=== PATIENT | male | born 1950 | race Caucasian/White ===

== ENCOUNTER 2017-06-07 05:51 | Inpatient (IN) | payer OTHER, MEDICARE ==
[~2017-06-07] VITALS: Ht 170.2 cm; Wt 91.0 kg
[~2017-06-07 05:51] MED LIST: ATOR10TA PO
[2017-06-07] MEDS ORDERED: LACTATED RINGERS 1,000 ML IV SCH (06:11)
[2017-06-07] MEDS ORDERED: TRANEXAMIC ACID 100 MG/ML, 10ML ONE ×4 (06:23)
[2017-06-07] MEDS ORDERED: KETOROLAC 60 MG/2 ML ONE (06:23)
[2017-06-07] MEDS ORDERED: EPINEPHRINE 1 MG/ML, 1ML ONE (06:24)
[2017-06-07] MEDS ORDERED: ROPIvacaine/PF 0.2%, 20 ML ONE (06:24)
[2017-06-07] MEDS ORDERED: SODIUM CHLORIDE 0.9% 50 ML ONE (06:24)
[2017-06-07] MEDS ORDERED: FENTANYL PF 100 MCG/2ML ONE (06:25)
[2017-06-07] MEDS ORDERED: MIDAZOLAM 1 MG/ML, 2ML ONE (06:25)
[2017-06-07] MEDS ORDERED: OxyconTIN ER 10 MG TAB.ER PO STA (06:25)
[2017-06-07] MEDS ORDERED: CEFAZOLIN 1,000 MG ONE (06:26)
[2017-06-07] MEDS ORDERED: PROPOFOL 0 ML ONE (06:26)
[2017-06-07] MEDS ORDERED: PROPOFOL 10 MG/ML, 20ML ONE (06:26)
[2017-06-07] MEDS ORDERED: ONDANSETRON 2MG/ML, 2ML ONE (06:26)
[2017-06-07] MEDS ORDERED: DEXAMETHASONE 4 MG/ML, 1ML ONE (06:26)
[2017-06-07] MEDS ORDERED: LIDOCAINE-MPF 2% ,5ML ONE ×2 (06:28→08:11)
[2017-06-07] MEDS ORDERED: BUPIVACAINE/PF 0.25% ONE (06:29)
[2017-06-07] MEDS ORDERED: VANCOMYCIN PER PHARMACY MC STA (06:37)
[2017-06-07] MEDS ORDERED: GABAPENTIN 300 MG CAPSULE PO STA (06:40)
[2017-06-07] MEDS ORDERED: ACETAMINOPHEN 500 MG TABLET ONE (06:54)
[2017-06-07] MEDS ORDERED: ACETAMINOPHEN 500 MG TABLET PO STA (06:54)
[2017-06-07] MEDS ORDERED: VANCOMYCIN 1,600 MG in SODIUM CHLORIDE 0.9% 250 ML IV ONE (07:00)
[2017-06-07] MEDS ORDERED: ONDANSETRON 4 MG TABLET PO PRN (07:30)
[2017-06-07] MEDS ORDERED: MAGNESIUM HYDROXIDE 8%, 30ML UDC PO PRN (07:30)
[2017-06-07] MEDS ORDERED: HYDROmorphone 1 MG/ML, 1ML IV PRN (07:30)
[2017-06-07] MEDS ORDERED: BISACODYL 10 MG SUPP PR PRN (07:30)
[2017-06-07] MEDS ORDERED: ONDANSETRON 2MG/ML, 2ML IV PRN (07:30)
[2017-06-07] MEDS ORDERED: DIAZEPAM 5 MG TABLET PO PRN (07:30)
[2017-06-07] MEDS ORDERED: ACETAMINOPHEN 650 MG/20.3 ML UDC PO PRN (07:30)
[2017-06-07] MEDS ORDERED: SENNA/DOCUSATE TABLET PO PRN (07:30)
[2017-06-07] MEDS ORDERED: ALUMINUM/MAG/SIMETHICONE 30 ML UDC PO PRN (07:30)
[2017-06-07] MEDS ORDERED: DIPHENHYDRAMINE 25 MG CAPSULE PO PRN (07:30)
[2017-06-07] MEDS ORDERED: KETAMINE 10 MG/ML, 20ML ONE (07:47)
[2017-06-07] MEDS ORDERED: HYDROmorphone 2 MG/ML, 1ML ONE (07:56)
[2017-06-07] MEDS ORDERED: EPHEDRINE 50 MG/ML, 1ML ONE (08:21)
[2017-06-07] MEDS: DOCUSATE 100 MG CAPSULE PO SCH ×2 (09:00→22:27)
[2017-06-07 11:15] VITALS: BP 115/72
[2017-06-07] MEDS: D5%-0.45% NACL 1,000 ML IV SCH ×2 (11:15→21:28)
[2017-06-07 14:49] VITALS: BP 108/70
[2017-06-07] MEDS: TAMSULOSIN 0.4 MG CAP.ER.24H PO SCH (15:55)
[2017-06-07] MEDS: CEFAZOLIN PMX 1GM/50ML 50 ML IVPB SCH ×2 (15:55→23:45)
[2017-06-07] MEDS: ASPIRIN 81 MG TABLET EC PO SCH (17:29)
[2017-06-07 19:15] VITALS: BP 131/64
[2017-06-07] MEDS ORDERED: ATORVASTATIN 10 MG TABLET PO SCH (21:00)
[2017-06-08] VITALS: BP 108/57
[2017-06-08] MEDS: OXYcodone IR 5MG TABLET PO PRN ×2 (02:36→08:12)
[2017-06-08 02:55] VITALS: BP 106/60
[2017-06-08 05:37] LABS: HEMATOCRIT 38.3 % (39.2-51.8); HEMOGLOBIN 12.9 g/dL (13.7-18.0)
[2017-06-08] MEDS ORDERED: DEXAMETHASONE 4 MG/ML, 1ML IVPush SCH (06:00)
[2017-06-08] MEDS: D5%-0.45% NACL 1,000 ML IV SCH (06:13)
[2017-06-08] MEDS: ASPIRIN 81 MG TABLET EC PO SCH (06:19)
[2017-06-08] MEDS ORDERED: KETOROLAC 30 MG/1 ML IV SCH (07:30)
[2017-06-08] MEDS: DOCUSATE 100 MG CAPSULE PO SCH (08:01)
[2017-06-08] MEDS: TAMSULOSIN 0.4 MG CAP.ER.24H PO SCH (08:01)
[2017-06-08 08:44] VITALS: BP 124/65
[2017-06-08] MEDS ORDERED: ASPI-496 PO (10:37)
[2017-06-08] MEDS ORDERED: OXYC5TAB3 PO (10:37)
[2017-06-08] MEDS ORDERED: DOCU-131 PO (10:38)
[2017-06-08] MEDS ORDERED: ONDA4TAB10 PO (10:38)
[2017-06-08] MEDS ORDERED: CELE200C PO (10:38)
[2017-06-08] MEDS ORDERED: DIAZ5TAB PO (10:39)
[2017-06-08] MEDS ORDERED: TRAM50TA2 PO (10:39)
[2017-06-08 12:23] VITALS: BP 137/69
== END 2017-06-08 12:45 | disposition home or self-care (01) | DRG 470 ==
LOC: ORIP 05:51 → 4NOR 11:21
PROVIDERS: ADMIT Orthopaedic Surgery; ATTEND Orthopaedic Surgery
PROC: 0SRC069 Replacement of Right Knee Joint with Oxidized Zirconium on Polyethylene Synthetic Substitute, Cemented, Open Approach (ICD-10-PCS; principal; 2017-06-07 07:45)
DX: M17.11 Unilateral primary osteoarthritis, right knee (principal)
CPT/HCPCS: 36415; 85014; 85018; C1713; J0171; J0690; J1100; J1170; J1885; J2250; J2405; J2704; J2795; J3010; J3370; J3490; C1776; J7050; J7120